=== PATIENT | male | born 2000 | race Caucasian/White ===

== ENCOUNTER 2024-07-25 14:59 | Emergency (ER) | payer OTHER, SELFPAY ==
--- NOTE | ~2024-07-25 | XR_ITS ---
EXAMINATION: XR CHEST CLINICAL INFORMATION: chest pain COMPARISON: None available. TECHNIQUE: Frontal view of the chest was obtained. FINDINGS: No significant abnormality is noted involving the heart, lungs, mediastinum, bony thorax or soft tissues. XR/XR chest 1V IMPRESSION: Normal chest. Electronically signed by: Dani Pelayo MD 07/25/2024 04:08 PM [facility] [place]
[2024-07-25 15:31] VITALS: BP 135/81; PULSE 93; RESP 20; TEMP 36.4; O2SAT 100; BMI 22.7
--- NOTE | 2024-07-25 15:37 | ED_ITS ---
HPI - General Adult General Chief complaint: Dyspnea Stated complaint: SOB, asthma Time Seen by Provider: 07/25/24 21:34 Source: patient Mode of arrival: ambulatory Limitations: no limitations History of Present Illness ED Provider: Janel Joyce NP HPI narrative: Patient is a 24-year-old male who presents emergency department for evaluation. He admits that he has been experiencing shortness of breath since earlier today and associated dry cough and feeling generally fatigued. Occasionally gets pain diffusely throughout his anterior chest. He does admit to a history of asthma but states it has not been bothersome for him for the past few years. He states ever since he had a COVID-19 infection a few years back he has been suffering from ?long COVID? where he experiences bouts of shortness of breath as well as chest pain. He states he has been seen by Cardiology as well as pulmonology and has not been made aware of any pertinent findings to suggest a cause for his chronic symptoms. He denies any recent sick contacts. Denies dyspnea on exertion, orthopnea, PND. Denies trauma, fevers, chills, URI symptoms, sore throat, difficulty swallowing, neck pain, palpitations, cough, nausea, vomiting, abdominal pain, numbness or tingling of the extremities, recent lower extremity pain or swelling. Denies alcohol use, recreational drugs, or smoking tobacco. Related Data Allergies Allergy/AdvReac Type Severity Reaction Status Date / Time No Known Allergies Allergy Verified 07/25/24 15:34 Review of Systems 2 Review of Systems: Yes all other systems are reviewed and are negative [facility] Past Medical History Attestation statement: The following information was validated with the patient. Source: old records reviewed Social History Social History Advance Directives: No Advance Directives Information Provided: No Physical Exam ED Vital Signs: Vital Signs - 24 hr 07/25/24 15:31 07/25/24 20:15 07/25/24 21:40 Temperature 97.6 F 98.6 F 98.2 F Pulse Rate 93 88 87 Respiratory Rate 20 18 16 Blood Pressure 135/81 127/88 128/89 Pulse Oximetry 100 98 99 Oxygen Delivery Method Room Air Room Air Room Air BMI result Body Mass Index 22.7 Appearance: Alert.?Oriented to person, place and time. No acute distress.?Normal affect. Eyes: Pupils equal, round and reactive to light.? ENT: Pharynx normal.?? Neck: Normal inspection.? Neck supple.?? CVS: Heart sounds normal. Normal heart rate and rhythm.? Pulses normal.?? Respiratory: No respiratory distress.? Lung sounds clear to auscultation bilaterally?? Abdomen: Soft and non-tender. Normoactive bowel sounds. Skin: Skin warm and dry.? Normal skin color.? Extremities: No lower extremity edema.? No calf ttp? Neuro: Moves all extremities spontaneously. Sensation intact bilaterally. No focal neuro deficits. Ambulates with normal steady gait. Course Course Course Narrative: RME: 24-year-old male with history of asthma and anxiety presents to ED for dry cough fatigue chest pain and shortness of breath which began today. Patient denies any recent long travel recent surgery. Lungs clear. Heart size normal. Negative for any calf pain or leg swelling. Medical Decision Making Medical Decision Making MDM Narrative: Patient is a 24-year-old male past medical history of asthma and reported long COVID symptoms as per HPI who presents for evaluation of shortness of breath cough fatigue and chest pain onset today as per HPI but have been acute on chronic over the past few years. Overall well-appearing, nontoxic, afebrile, no respiratory distress. No rash or lesions, urticaria, or evidence of angioedema to suggest allergic reaction/anaphylaxis. No swallowing difficulties to suggest aspiration. No associated lower extremity redness pain or swelling, history of VTE/malignancy to suggest pericardial effusion, or pulmonary embolism. Lower suspicion for ACS, not consistent with CHF. No palpitations or history of known arrhythmias. No recent trauma or injury, no tracheal deviation, unlikely tension pneumothorax. He is experiencing and associated cough and fatigue which may suggest viral illness, possibly pneumonia. No history of diabetes, unlikely DKA. No acute bleeding or known anemia, no associated dizziness fatigue or chest pain to suggest acute anemia. No tachypnea hypoxia or tachycardia, no wheezing, lower suspicion for asthma exacerbation. Serum labs reveal no leukocytosis anemia or thrombocytopenia. No electrolyte derangement. No ZAHIDA. High sensitive troponin below detectable limits, EKG nonischemic not consistent with ACS. D-dimer negative not consistent with pulmonary embolus BNP below detectable limits not consistent with CHF. Viral serologies are negative. Group a strep testing negative. Chest x-ray without evidence of consolidation or infiltrate pathology. These findings were all discussed with patient. Discussed in the onset of fatigue and generalized weakness today, may be onset of viral type illness, rest over the next few days, outpatient follow-up with PCP/specialist for any persistent symptoms. Discussed strict return precautions. All questions answered. Differential Diagnosis Differential Diagnoses: The differential diagnosis associated with the presentation includes (See narrative above) Admission/Observation Consideration of admission/observation: Escalation of care including admission/observation considered (See narrative above) Lab Data MDM Lab Attestation statement: I reviewed the patient's lab results. (See narrative above) 07/25/24 16:11 07/25/24 16:11 Labs: Lab Results 07/25/24 Range/Units 16:11 WBC 5.6 (4.8-10.8) X10*3/uL RBC 5.35 (4.60-5.80) X10*6/uL Hgb 16.2 (14.0-18.0) g/dl Hct 45.0 (42.0-52.0) % MCV 84.1 (80.0-98.0) fL MCH 30.3 (27.0-33.0) pg MCHC 36.0 (31.0-36.0) g/dl RDW 11.9 (11.0-16.0) % Plt Count 234 (160-400) X10*3/uL MPV 10.5 (9.4-12.4) fL Immature Gran % (Auto) 0.4 (0.0-0.4) % Neut % (Auto) 70.3 (45-73) % Lymph % (Auto) 18.1 L (20-40) % [place] % (Auto) 8.6 (2-11) % Eos % (Auto) 1.3 (0-4) % Baso % (Auto) 1.3 (0-2) % Lymph # (Auto) 1.0 L (1.2-4.9) X10*3/uL [place] # (Auto) 0.5 (0.1-1.2) X10*3/uL Eos # (Auto) 0.1 (0.0-0.4) X10*3/uL Baso # (Auto) 0.1 (0.0-0.2) X10*3/uL Abs Immat Gran (auto) 0.02 (0.00-0.03) X10*3/uL Absolute Neuts (auto) 3.9 (2.0-8.3) x10*3/uL Absolute Nucleated RBC 0.000 (0.0-0.012) X10*3/uL Nucleated RBC % (auto) 0.0 (0.0-0.2) /100WBC PT 11.8 (10.9-12.4) SEC INR 1.0 (0.9-1.1) APTT 33.3 (26.0-36.8) SEC D-Dimer High Sensitivty < 150 NG/ML Sodium 139 (135-145) mmol/L Potassium 3.8 (3.3-5.1) mmol/L Chloride 109 H (96-108) mmol/L Carbon Dioxide 26 (22-29) mmol/L Anion Gap 8 L (12-20) BUN 12 (9-16) mg/dL Creatinine 1.04 (0.5-1.4) mg/dL Estim Creat Clear Calc 102.7 Estimated GFR > 60 Random Glucose 84 (60-115) mg/dL Calcium 9.7 (8.4-10.2) mg/dL Total Bilirubin 0.5 (0.0-1.0) mg/dL AST 22 (5-37) U/L ALT 17 (0-40) U/L Alkaline Phosphatase 101 (39-117) U/L Troponin I High Sens < 2.7 (<3.5-35.0) ng/L B-Natriuretic Peptide < 10 (<100) pg/mL Total Protein 7.5 (6.5-8.0) g/dL Albumin 4.5 (3.5-5.0) g/dL Influenza Type A (PCR) NEGATIVE (Negative) Influenza Type B (PCR) NEGATIVE (Negative) RSV RNA Qual (PCR) NEGATIVE (Negative) SARS-CoV-2 RNA (RT-PCR) NEGATIVE (Negative) S. pyogenes GrpA TAMMY Negative (Negative) Independent Interpretation I performed an independent interpretation of an: EKG (Normal sinus rhythm ventricular rate of 81, QTC 413, no ST elevation, no ST depression) and Plain X- Ray (See narrative above) Radiology Impression Discussion of test interpretation with radiology: I have reviewed the radiologist's reading. Radiologist Impression: EXAMINATION: XR CHEST CLINICAL INFORMATION: chest pain COMPARISON: None available. TECHNIQUE: Frontal view of the chest was obtained. FINDINGS: No significant abnormality is noted involving the heart, lungs, mediastinum, bony thorax or soft tissues. XR/XR chest 1V IMPRESSION: Normal chest. External Record Review External record reviewed: Outpatient record Prescription Management I considered prescription management with: Pain Medication (Acetaminophen/ ibuprofen) Discharge Plan Discharge Clinical Impression: Chest pain, Shortness of breath Patient Disposition: Home, Self-Care Instructions: Chest Pain (ED), Shortness of Breath (ED) Additional Instructions: As discussed, your workup today does not show evidence of obvious cause for the shortness of breath and chest pain that you are experiencing. Your chest x-ray does not show evidence of pneumonia. A blood marker known as your D-dimer is not elevated to suggest a blood clot in the lungs as a cause for your symptoms. You do not have an elevated white blood cell count to suggest a significant infection. You are not anemic. Your electrolytes and kidney function are normal. Your EKG and a blood enzyme for heart function known as troponin are normal. You were tested for COVID-19/RSV/flu all of which were negative. Strep testing was negative as well. As mentioned, the onset worsening symptoms today may be indicator of an oncoming viral illness. Please be sure to rest over the next few days. Follow-up with your primary care doctor in addition to your specialists as scheduled. You may return with any new or worsening symptoms or concerns. Print Language: [place]i
--- NOTE | 2024-07-25 15:37 | ECG_ITS ---
Test Reason : SOB Blood Pressure : */* mmHG Vent. Rate : 81 BPM Atrial Rate : 81 BPM P-R Int : 134 ms QRS Dur : 94 ms QT Int : 356 ms P-R-T Axes : 95 29 35 degrees QTcB Int : 413 ms Normal sinus rhythm Incomplete right bundle branch block Borderline ECG No previous ECGs available Referred By: Elliot Ridley Electronically Signed By: Yonis Alfonso
[2024-07-25 16:21] LABS: Basophils Absolute Auto 0.1 X10*3/uL (0.0-0.2); Basophils Percent Auto 1.3 % (0-2); Eosinophils Absolute Auto 0.1 X10*3/uL (0.0-0.4); Eosinophils Percent Auto 1.3 % (0-4); Hemoglobin 16.2 g/dl (14.0-18.0); Imm Gran Abs Auto 0.02 X10*3/uL (0.00-0.03); Imm Gran Pct Auto 0.4 % (0.0-0.4); Lymphocytes Percent Auto 18.1 % (20-40); MANUAL DIFF FLAG NO; Mean Corpuscular Hemoglobin 30.3 pg (27.0-33.0); Mean Corpuscular Volume 84.1 fL (80.0-98.0); Mean Platelet Volume 10.5 fL (9.4-12.4); Monocytes Absolute Auto 0.5 X10*3/uL (0.1-1.2); Monocytes Percent Auto 8.6 % (2-11); Neutrophils Absolute Auto 3.9 x10*3/uL (2.0-8.3); Neutrophils Percent Auto 70.3 % (45-73); Platelet Count 234 X10*3/uL (160-400); Red Blood Count 5.35 X10*6/uL (4.60-5.80); Red Cell Distribution Width 11.9 % (11.0-16.0); White Blood Count 5.6 X10*3/uL (4.8-10.8)
[2024-07-25 16:28] LABS: Prothrombin Time 11.8 SEC (10.9-12.4)
[2024-07-25 16:30] LABS: Partial Thromboplastin Time 33.3 SEC (26.0-36.8)
[2024-07-25 16:37] LABS: IDNOW Serial# 58CA691E; Strep A Nucleic Acid Negative (Negative)
[2024-07-25 16:40] LABS: Alanine Aminotransferase 17 U/L (0-40); Albumin Level 4.5 g/dL (3.5-5.0); Alkaline Phosphatase 101 U/L (39-117); Anion Gap 8 (12-20); Aspartate Amino Transferase 22 U/L (5-37); Bilirubin Total 0.5 mg/dL (0.0-1.0); Blood Urea Nitrogen 12 mg/dL (9-16); Calcium 9.7 mg/dL (8.4-10.2); Carbon Dioxide 26 mmol/L (22-29); Chloride 109 mmol/L (96-108); Creatinine Clr Calc Pharmacy 102.7; Estimated Glomerular Filt Rate > 60; Glucose Random 84 mg/dL (60-115); Potassium 3.8 mmol/L (3.3-5.1); Sodium 139 mmol/L (135-145); Total Protein 7.5 g/dL (6.5-8.0)
[2024-07-25 16:45] LABS: B Type Natriuretic Peptide < 10 pg/mL (<100)
[2024-07-25 16:46] LABS: Troponin-I High Sensitivity < 2.7 ng/L (<3.5-35.0)
[2024-07-25 17:00] LABS: Influenza A PCR NEGATIVE (Negative); Influenza B PCR NEGATIVE (Negative); Resp Syncy Virus RNA Qual PCR NEGATIVE (Negative); SARS COV2 PCR INHOUSE NEGATIVE (Negative)
[2024-07-25 20:15] VITALS: BP 127/88; PULSE 88; RESP 18; TEMP 37; O2SAT 98
[2024-07-25 21:40] VITALS: BP 128/89; PULSE 87; RESP 16; TEMP 36.8; O2SAT 99
[2024-07-25 22:40] LABS: D Dimer High Sensitivity < 150 NG/ML
[2024-07-25 23:46] VITALS: BP 128/89; PULSE 87; RESP 16; TEMP 36.8; O2SAT 99
== END 2024-07-25 23:47 | disposition home or self-care (01) ==
PROVIDERS: Nurse Practitioner Family; Physician Assistant; Emergency Provider Emergency Medicine Emergency Medical Services; PCP Internal Medicine
DX: R07.9 Chest pain, unspecified (principal); R05.9 Cough, unspecified; R06.02 Shortness of breath; J45.909 Unspecified asthma, uncomplicated; Z03.818 Encounter for observation for suspected exposure to other biological agents ruled out
CPT/HCPCS: 0241U; 71045; 80053; 83880; 84484; 85025; 85379; 85610; 85730; 87651; 93005; 99283; 99284

== ENCOUNTER → 2024-07-25 15:37 | Outpatient (BNV) | payer OTHER, SELFPAY | PROVIDERS: Emergency Provider Emergency Medicine Emergency Medical Services; PCP Internal Medicine; Visit Provider Internal Medicine Cardiovascular Disease | DX: I45.10 Unspecified right bundle-branch block (principal) | CPT/HCPCS: 93010 ==

== ENCOUNTER → 2024-07-25 15:37 | Outpatient (BNV) | payer OTHER, SELFPAY | PROVIDERS: PCP Internal Medicine; Visit Provider Radiology Diagnostic Radiology | DX: R07.9 Chest pain, unspecified (principal) | CPT/HCPCS: 71045 ==